=== PATIENT | male | born 1945 | race Caucasian/White ===

== ENCOUNTER 2016-07-07 07:14 | Day surgery (SDC) | payer OTHER ==
[2016-07-03 14:35] VITALS: BMI 30.4
[~2016-07-07 07:14] MED LIST: LEVOFLOXACIN 500 MG PREMIX BAG IVPB ONE
[2016-07-07] MEDS ORDERED: LEVOFLOXACIN 500 MG IVPB 100 ML IVPB ONE (10:02)
[2016-07-07] MEDS ORDERED: MIDAZOLAM HCL 2 MG/2 ML SINGLE DOSE VIAL ONE ×2 (10:17)
[2016-07-07] MEDS ORDERED: KETOROLAC TROMETHAMINE 30 MG/1 ML VIAL ONE (10:17)
[2016-07-07] MEDS ORDERED: DEXAMETHASONE SOD PHOSPHATE 4 MG/1 ML VIAL ONE (10:17)
[2016-07-07] MEDS ORDERED: LEVOFLOXACIN 500 MG PREMIX BAG IVPB ONE (10:18)
[2016-07-07] MEDS ORDERED: ONDANSETRON 4 MG/2 ML VIAL IVPUSH PRN (10:54)
[2016-07-07] MEDS ORDERED: LACTATED RINGERS SOLUTION 1,000 ML IV SCH (11:00)
[2016-07-07 11:19] VITALS: TEMP 98
--- NOTE | 2016-07-07 11:32 | OP ---
Operative Note - Note: Operative Date: 07/07/16 Pre-Operative Diagnosis: right renal stone Operation: right eswl Findings: 5mm right lower pole stone Post-Operative Diagnosis: Same as Pre-op Surgeon: Yovani Dai Anesthesia: General Operative Report Dictated: Yes
[2016-07-07 12:53] VITALS: BP 122/68; PULSE 77
--- NOTE | 2016-07-07 20:44 | OP ---
DATE OF OPERATION: 07/07/2016 PREOPERATIVE DIAGNOSIS: Right renal stone. POSTOPERATIVE DIAGNOSIS: Right renal stone. PROCEDURE: Extracorporeal shock wave lithotripsy. ATTENDING SURGEON: Nicola Dai M.D. ANESTHESIA: General. OPERATION: Patient was brought in the operating room, placed in a supine position on the operating room table. Ultrasonography and fluoroscopy were performed. A 5-mm lower pole right sided stone was identified. Patient was then given general anesthesia and preoperative surgical prophylactic antibiotics. Patient was then underwent extracorporeal shock wave lithotripsy, 2500 impulses at 20 joules of power was administered to the stone. No complications were noted. The patient tolerated the procedure very well without any complications. DISPOSITION: Disposition of the patient to the recovery room. NICOLA HWANG M.D. [id number]
== END 2016-07-07 12:40 | disposition home or self-care (01) ==
LOC: JASU-SURG 07:14
PROVIDERS: ATTEND Urology
PROC: 0TF3XZZ Fragmentation in Right Kidney Pelvis, External Approach (ICD-10-PCS; principal; 2016-07-07 09:30)
DX: N20.0 Calculus of kidney (principal)
CPT/HCPCS: 94760

== ENCOUNTER 2016-07-21 07:32 | Day surgery (SDC) | payer OTHER ==
[2016-07-17 15:47] VITALS: BMI 30.4
[2016-07-21] MEDS ORDERED: ONDANSETRON 4 MG/2 ML VIAL IVPUSH PRN (09:59)
[2016-07-21] MEDS ORDERED: oxyCODONE HCL 5 MG TABLET PO PRN (09:59)
[2016-07-21] MEDS ORDERED: PROMETHAZINE HCL 25 MG/1 ML VIAL IVPUSH PRN (09:59)
[2016-07-21] MEDS ORDERED: LACTATED RINGERS SOLUTION 1,000 ML IV SCH (10:00)
[2016-07-21] MEDS ORDERED: MIDAZOLAM HCL 2 MG/2 ML SINGLE DOSE VIAL ONE ×3 (10:09→10:22)
[2016-07-21] MEDS ORDERED: LEVOFLOXACIN 500 MG PREMIX BAG IVPB ONE (10:15)
[2016-07-21] MEDS ORDERED: LEVOFLOXACIN 500 MG IVPB 100 ML IVPB ONE (10:18)
[2016-07-21] MEDS ORDERED: SUCCINYLCHOLINE CHLORIDE 200 MG/10 ML VIAL ONE (10:23)
[2016-07-21] MEDS ORDERED: DEXAMETHASONE SOD PHOSPHATE 4 MG/1 ML VIAL ONE (10:33)
--- NOTE | 2016-07-21 12:21 | OP ---
Operative Note - Note: Pre-Operative Diagnosis: left renal stone Operation: left eswl Findings: 1.0 cm left renal stone Post-Operative Diagnosis: Same as Pre-op Surgeon: Yovani Dai Anesthesia: General Operative Report Dictated: Yes
[2016-07-21 12:23] VITALS: TEMP 97.7
[2016-07-21 12:59] VITALS: BP 106/66; PULSE 72
--- NOTE | 2016-07-22 00:55 | OP ---
DATE OF OPERATION: 07/21/2016 PREOPERATIVE DIAGNOSIS: Left renal stone. POSTOPERATIVE DIAGNOSIS: Left renal stone. PROCEDURE: Left extracorporeal shock wave lithotripsy. ATTENDING SURGEON: Nicola Dai M.D. ANESTHESIA: General. OPERATION: Patient was brought in the operating room, placed in a supine position on the operating room table. Ultrasonography and fluoroscopy were performed. A 1-cm left lower pole stone was identified. General anesthesia, preoperative prophylactic antibiotics were administered. Levaquin 500 mg was given intravenously. Extracorporeal shock wave lithotripsy was then performed. 3000 impulses at 20 joules of power was administered to the stone with excellent fragmentation. No complication was noted. DISPOSITION: Disposition of the patient to the recovery room. NICOLA HWANG M.D. [id number]
== END 2016-07-21 13:00 | disposition home or self-care (01) ==
LOC: JASU-SURG 07:32
PROVIDERS: ATTEND Urology
PROC: 0TF4XZZ Fragmentation in Left Kidney Pelvis, External Approach (ICD-10-PCS; principal; 2016-07-21 09:00)
DX: N20.0 Calculus of kidney (principal)
CPT/HCPCS: 94760

== ENCOUNTER 2018-04-12 13:01 | Day surgery (SDC) | payer OTHER ==
[2018-04-12] MEDS ORDERED: fentaNYL CITRATE 250 MCG/5 ML VIAL ONE (17:17)
[2018-04-12] MEDS ORDERED: MIDAZOLAM HCL 2 MG/2 ML SINGLE DOSE VIAL ONE (17:17)
--- NOTE | 2018-04-12 17:36 | OP ---
Operative Note - Note: Operative Date: 04/12/18 Pre-Operative Diagnosis: Left renal stone Operation: Left ESWL Findings: 5 mm mid pole left real stone Post-Operative Diagnosis: Same as Pre-op Surgeon: Yovani Dai Anesthesia: Fractional Estimated Blood Loss (mls): 0 Operative Report Dictated: Yes
[2018-04-12 18:30] VITALS: BP 137/75; PULSE 87; TEMP 98
--- NOTE | 2018-04-13 10:25 | OP ---
DATE OF OPERATION: 04/12/2018 PREOPERATIVE DIAGNOSIS: Left renal stone. POSTOPERATIVE DIAGNOSIS: Left renal stone. PROCEDURE: Left extracorporeal shock wave lithotripsy. ATTENDING: Nicola Hwang MD ANESTHESIA: Fractional. OPERATION FOLLOWS: The patient was brought in the operating room, placed in supine position on the operating room table. Ultrasonography and fluoroscopy were performed. A 5-mm left mid-pole stone was identified. Anesthesia was then administered. Levaquin was administered preoperatively, as well. Shock wave lithotripsy was the performed. No complications were noted. The disposition of the patient was to the recovery room. NICOLA HWANG M.D. [id number]
== END 2018-04-12 18:31 | disposition home or self-care (01) ==
LOC: JASU-SURG 13:01
PROVIDERS: ATTEND Urology
PROC: 0TF4XZZ Fragmentation in Left Kidney Pelvis, External Approach (ICD-10-PCS; principal; 2018-04-12 19:15)
DX: N20.0 Calculus of kidney (principal)

== ENCOUNTER 2019-04-25 08:21 | Day surgery (SDC) | payer OTHER ==
[2019-04-22 16:06] VITALS: BMI 30.7
[2019-04-25 08:46] VITALS: TEMP 98
[2019-04-25] MEDS ORDERED: LIDOCAINE HCL/PF 2% SDV 5ML VIAL ONE (09:58)
[2019-04-25] MEDS ORDERED: MIDAZOLAM HCL 2 MG/2 ML SINGLE DOSE VIAL ONE (09:59)
--- NOTE | 2019-04-25 11:28 | OP ---
Operative Note - Note: Operative Date: 04/25/19 Pre-Operative Diagnosis: Right renal stone Operation: Right ESWL Findings: 6 mm mid pole Right renal stone Post-Operative Diagnosis: Same as Pre-op Surgeon: Yovani Dai Anesthesia: Fractional Estimated Blood Loss (mls): 0 Drains, Volume Out (mls): 0 Operative Report Dictated: Yes
[2019-04-25 12:00] VITALS: BP 138/85; PULSE 86
--- NOTE | 2019-04-25 20:32 | OP ---
DATE OF OPERATION: 04/25/2019 PREOPERATIVE DIAGNOSIS: Right renal stone. POSTOPERATIVE DIAGNOSIS: Right renal stone. PROCEDURE: Right extracorporeal shock wave lithotripsy. ATTENDING: Nicola Hwang MD ANESTHESIA: Fractional. DESCRIPTION OF OPERATION: The patient was brought in the operating room, placed in supine position on the operating room table. Ultrasonography and fluoroscopy were performed. A 6-mm right mid-pole stone was identified. At this point, extracorporeal shock wave lithotripsy was started after anesthesia and preoperative antibiotics were given. Excellent fragmentation of the stone was noted under real-time ultrasonography and fluoroscopy. No complications were noted. The patient tolerated the procedure very well. The disposition of the patient was to the recovery room. NICOLA HWANG M.D. [id number]
== END 2019-04-25 12:18 | disposition home or self-care (01) ==
LOC: JASU-SURG 08:21
PROVIDERS: ATTEND Urology
PROC: 0TF3XZZ Fragmentation in Right Kidney Pelvis, External Approach (ICD-10-PCS; principal; 2019-04-25 10:15)
DX: N20.0 Calculus of kidney (principal)

== ENCOUNTER 2023-04-06 03:59 | Day surgery (SDC) | payer OTHER ==
[2023-04-01 15:56] VITALS: BMI 27.8
[2023-04-06] MEDS ORDERED: MIDAZOLAM HCL 2 MG/2 ML SINGLE DOSE VIAL ONE (07:47)
[2023-04-06 09:07] VITALS: BP 123/80; PULSE 79; RESP 20; TEMP 97.5
== END 2023-04-06 10:00 | disposition home or self-care (01) ==
LOC: JASU-SURG 03:59
PROVIDERS: ATTEND Urology
PROC: 0TF3XZZ Fragmentation in Right Kidney Pelvis, External Approach (ICD-10-PCS; principal; 2023-04-06 08:00)
DX: N20.0 Calculus of kidney (principal)